=== PATIENT | male | born 1990 | race Caucasian/White ===

== ENCOUNTER 2019-06-21 15:59 | Emergency (ER) | payer SELFPAY ==
[~2019-06-21] VITALS: Ht 170.2 cm; Wt 78.0 kg
[2019-06-21 20:29] VITALS: BP 132/80
== END 2019-06-21 21:19 | disposition home or self-care (01) ==
LOC: ER 15:59
DX: S00.93XA Contusion of unspecified part of head, initial encounter (principal); W18.39XA Other fall on same level, initial encounter; Y93.89 Activity, other specified; Y92.89 Other specified places as the place of occurrence of the external cause; Y99.8 Other external cause status; E11.9 Type 2 diabetes mellitus without complications
CPT/HCPCS: 99281